=== PATIENT | male | born 1950 | race Caucasian/White ===

== ENCOUNTER 2020-04-06 07:02 | Outpatient (CLI) | payer OTHER, SELFPAY ==
--- NOTE | 2020-04-06 07:13 | USCV_ITS ---
Brian Douglass Age: 69 Gender: M : 1950 Exam Date: 04/06/2020 07:26 Ordering Phys: Barbara Mak MD Technologist: Opal Mcgrath Exam Location: [facility] – [place] Indication: AAA Screening HISTORY: Diameter (cm) AP x Transverse x Length Velocity (cm/s) Waveform Prox Aorta: 2.68 x 3.01 x 70.10 Mid Aorta: 2.15 x 2.33 x 70.10 Distal Aorta: 1.63 x 1.78 x 71.80 Right Iliac Prox: 0.96 x 0.82 x 82.90 Left Iliac Prox: 0.93 x 1.02 x 90.60 Stent Prox Landing x x Aneurysmal Sac Max x x Lt Lat Sac Dim Rt Lat Sac Dim Stent Dist Landing x x Right Iliac Stent x x Left Iliac Stent x x Right Renal Art Left Renal Art FINDINGS: No evidence of abdominal aortic or bilateral iliac aneurysm. Ectatic abdominal aorta with evidence of mild atherosclerotic plaque noted. CONCLUSIONS No AAA. Dr. Ai Enrique DO (Electronically Signed) Final Date: 06 April 2020 08:11 S
== END 2020-04-06 07:03 | disposition home or self-care (01) ==
PROVIDERS: PCP Family Medicine; Visit Provider Family Medicine
DX: Z03.89 Encounter for observation for other suspected diseases and conditions ruled out (principal)
CPT/HCPCS: 76706

== ENCOUNTER → 2023-06-11 08:54 | Outpatient (BNVA) | payer OTHER, SELFPAY | PROVIDERS: PCP Family Medicine; Visit Provider Nurse Practitioner Family | DX: L57.0 Actinic keratosis (principal); Z80.8 Family history of malignant neoplasm of other organs or systems; Z85.828 Personal history of other malignant neoplasm of skin; L82.1 Other seborrheic keratosis; L82.0 Inflamed seborrheic keratosis; D22.5 Melanocytic nevi of trunk; L57.8 Other skin changes due to chronic exposure to nonionizing radiation; L85.3 Xerosis cutis | CPT/HCPCS: 17000; 17110; 99213 ==

== ENCOUNTER → 2024-06-11 09:34 | Outpatient (BNVA) | payer OTHER, SELFPAY | PROVIDERS: PCP Family Medicine; Visit Provider Nurse Practitioner Family | DX: L30.4 Erythema intertrigo (principal); L85.3 Xerosis cutis; D22.5 Melanocytic nevi of trunk; L81.4 Other melanin hyperpigmentation; Z08 Encounter for follow-up examination after completed treatment for malignant neoplasm; Z85.828 Personal history of other malignant neoplasm of skin; D48.5 Neoplasm of uncertain behavior of skin; L57.0 Actinic keratosis | CPT/HCPCS: 11102; 17000; 69100; 99214 ==

== ENCOUNTER → 2024-07-06 09:26 | Outpatient (BNVA) | payer OTHER, SELFPAY | PROVIDERS: PCP Family Medicine; Visit Provider Dermatology | DX: C44.622 Squamous cell carcinoma of skin of right upper limb, including shoulder (principal); C44.212 Basal cell carcinoma of skin of right ear and external auricular canal; D48.5 Neoplasm of uncertain behavior of skin; L57.0 Actinic keratosis | CPT/HCPCS: 11102; 17000; 17272; 17281 ==

== ENCOUNTER → 2024-11-03 09:54 | Outpatient (BNVA) | payer OTHER, SELFPAY | PROVIDERS: PCP Family Medicine; Visit Provider Nurse Practitioner Family | DX: L81.4 Other melanin hyperpigmentation (principal); L57.8 Other skin changes due to chronic exposure to nonionizing radiation; X32.XXXA Exposure to sunlight, initial encounter; L57.0 Actinic keratosis; Z08 Encounter for follow-up examination after completed treatment for malignant neoplasm; Z85.828 Personal history of other malignant neoplasm of skin | CPT/HCPCS: 17000; 99213 ==